=== PATIENT | male | born 1960 | race Caucasian/White ===

== ENCOUNTER 2021-09-02 20:50 | Emergency (ER) | payer OTHER, SELFPAY ==
[2021-09-02] VITALS (9 sets, daily range): BP systolic 160–180; BP diastolic 88–101; PULSE 74–80; RESP 15–22; TEMP 36.5; O2SAT 96–99
--- NOTE | 2021-09-02 21:01 | DI.RAD.S_ITS ---
PROCEDURE: XR CHEST 1V INDICATIONS: chest pain TECHNIQUE: One view of the chest was acquired. COMPARISON: None. FINDINGS: Surgical changes and devices: None. Lungs and pleura: Lungs are clear. No pleural effusions or pneumothorax. Mediastinum: Mediastinal contours appear normal. Heart size is normal. Bones and chest wall: No suspicious bony lesions. Overlying soft tissues appear unremarkable. IMPRESSION: No acute cardiopulmonary process demonstrated radiographically. Dictated by: Jimmy Lew M.D. on 09/02/2021 at 21:17 Approved by: Jimmy Lew M.D. on 09/02/2021 at 21:17
--- NOTE | 2021-09-02 21:15 | ED_ITS ---
HPI - Chest Pain General Chief Complaint: Chest Pain Stated Complaint: DIFFICULTY BREATING/FEELS LIKE COULD BE AFIB Time Seen by Provider: 09/02/21 21:15 Source: patient Mode of arrival: Ambulatory History of Present Illness HPI narrative: 61-year-old gentleman with a history of asthma sleep apnea hypertension with prior necrotizing fasciitis from chronic lymphedema involving the left lower extremity presents with chest dyspnea that started at around 1:00 this afternoon. He was in his usual state of health when he began noticing the tightness. His usual state of health includes occasional dyspnea, fatigue, lower extremity edema and intermittent chest tightness. Today he denies nausea, vomiting, diarrhea, fevers he notes that he has a slightly more exacerbated cough than at his baseline. No change to his chronic lower extremity edema. He is not noticed any palpitations headaches. He denies any history of prior cardiac events or stroke. Related Data Previous Rx's Medication Instructions Recorded albuterol sulfate 90 mcg/actuation 2 inh INHALATION Q6H PRN #1 ea 09/03/21 breath activated powder inhaler prednisone 20 mg tablet 20 mg PO DAILY #5 tab 09/03/21 Allergies Allergy/AdvReac Type Severity Reaction Status Date / Time clindamycin Allergy Verified 09/02/21 21:12 vancomycin Allergy Verified 09/02/21 21:12 Review of Systems Review of Systems Narrative: Remainder of complete review of systems is otherwise unremarkable except for that included in the HPI. Patient History Medical History Asthma History of necrotizing fasciitis Hypertension Morbid obesity Sleep apnea Exam Narrative Exam Narrative: General: Obese, mild dyspnea but able to speak in complete sentences. Able to give a complete and coherent history. HEENT: Moist mucous membranes, normal sclera with reactive pupils, Neck: No JVD, supple Respiratory: Lungs minor wheeze in all lung mancia, no rhonchi. Full and symm etrical air movement Cardiac: Regular rate and rhythm no murmurs no bruits Abdomen: Soft, obese, nontender, no flank pain Skin: Somewhat pale but otherwise Warm and dry, no rashes Neurologic: Grossly neurologically intact with no obvious asymmetries or abnormalities Extremities: No trauma, compression socks in place bilaterally, left side with significant lymphedema and skin graft scars. Psych: Cooperative, appropriate insight and affect Initial Vital Signs Initial Vital Signs: Vital Signs Temperature 97.7 F 09/02/21 21:01 Pulse Rate 77 09/02/21 21:01 Respiratory Rate 22 09/02/21 21:01 Blood Pressure 179/101 H 09/02/21 21:01 Pulse Oximetry 98 09/02/21 21:01 Course Orders Ordered: ED Orders 09/02/21 21:01 XR chest 1V Stat EKG-12 Lead Stat 09/02/21 21:11 COVID19 -Nasal swab/Pre-Proc Stat 09/02/21 21:30 Complete Blood Count AUTO DIFF Stat Comprehensive Metabolic Panel Stat Lipase Stat Magnesium Stat Troponin & CK Cardiac Panel Stat Discontinued Medications Albuterol/Ipratropium (Albuterol/Ipratropium 3 Ml Ampul) 3 ml INH NOW ONE Stop: 09/02/21 22:34 Last Admin: 09/02/21 22:44 Dose: 3 ml Documented by: JONELLE Methylprednisolone (Methylprednisolone 125 Mg/2 Ml Vial) 125 mg IV NOW ONE Stop: 09/02/21 23:49 Last Admin: 09/02/21 23:56 Dose: 125 mg Documented by: Metoprolol Tartrate (Metoprolol Ir 25 Mg Tablet) 50 mg PO NOW ONE Stop: 09/02/21 21:34 Last Admin: 09/02/21 21:43 Dose: 50 mg Documented by: MEREDITH Vital Signs Vital signs: Vital Signs - 8 hr 09/02/21 21:01 09/02/21 21:10 09/02/21 21:30 Temperature 97.7 F Pulse Rate 77 76 77 Respiratory Rate 22 Blood Pressure 179/101 H Pulse Oximetry 98 97 09/02/21 21:31 09/02/21 22:00 09/02/21 22:30 Temperature Pulse Rate 80 77 76 Respiratory Rate 15 16 Blood Pressure 180/97 H 169/89 H 160/88 H Pulse Oximetry 96 96 09/02/21 22:48 Temperature Pulse Rate Respiratory Rate 18 Blood Pressure Pulse Oximetry 99 MDM - Chest Pain Lab Data Result diagrams: 09/02/21 21:30 09/02/21 21:30 Labs: Lab Results 09/02/21 09/02/21 09/02/21 Range/Units 21:11 21:30 21:30 WBC 9.0 (4.5-11.0) X10^3/uL RBC 4.59 (4.5-5.9) X10^6/uL Hgb 13.7 (13.5-17.5) g/dL Hct 40.8 L (41-53) % MCV 88.9 (80-100) fL MCH 30.0 (26-34) PG MCHC 33.7 (30-36) % RDW 13.8 (11.6-14.8) % Plt Count 270 (150-400) X10^3/uL Neut % (Auto) 57.1 (50-75) % Lymph % (Auto) 32.4 (25-40) % [place] % (Auto) 7.2 (3-14) % Eos % (Auto) 2.5 (2-4) % Baso % (Auto) 0.8 (0-2) % Neut # (Auto) 5100 (8124-0681) /uL Lymph # (Auto) 2900 (7815-0753) /uL [place] # (Auto) 700 (0-900) /uL Eos # (Auto) 200 (0-450) /uL Baso # (Auto) 100 (0-100) /uL Sodium 143 (137-145) mmol/L Potassium 3.8 (3.4-5.1) mmol/L Chloride 109 H (98-107) mmol/L Carbon Dioxide 32 (22-32) mmol/L BUN 17 (9-20) mg/dL Creatinine 1.02 (0.66-1.25) mg/dL Estimated GFR > 60.0 (>60) mL/min BUN/Creatinine Ratio 16.7 (6-22) Glucose 108 H (70-100) mg/dL Calcium 9.4 (8.4-10.2) mg/dL Magnesium 2.3 (1.6-2.3) mg/dL Total Bilirubin 0.7 (0.2-1.3) mg/dL AST 75 H (17-59) IU/L ALT 102 H (<50) IU/L Alkaline Phosphatase 92 (38-126) U/L Total Creatine Kinase 172 H (55-170) U/L CK-MB (CK-2) 1.38 (<2.37) ng/mL CK-MB (CK-2) Rel Index 0.8 L (1.5-5.0) % Troponin I < 0.012 (0.01-0.034) ng/mL Total Protein 7.1 (6.3-8.2) g/dL Albumin 4.2 (3.5-5.0) g/dL Globulin 2.9 (1.7-4.1) g/dL Albumin/Globulin Ratio 1.4 (1.0-2.8) Lipase 176 (23-300) U/L SARS-CoV-2 (PCR) Negative (Negative) Imaging Data Chest x-ray: Radiologist's Impression: FINDINGS:? ? Surgical changes and devices:? None.? ? Lungs and pleura:? Lungs are clear.? No pleural effusions or pneumothorax.? ? Mediastinum:? Mediastinal contours appear normal.? Heart size is normal.? ? Bones and chest wall:? No suspicious bony lesions.? Overlying soft tissues appear unremarkable.? ? IMPRESSION:? No acute cardiopulmonary process demonstrated radiographically. ? ? Dictated by: Jimmy Lew M.D. on 09/02/2021 at 21:17 ? ? ECG Data Interpretation: Sinus rhythm with first-degree AV block at a rate of 79 T-wave flattening laterally without acute ischemic changes Discharge Plan Departure Patient Disposition: Home Clinical Impression: Acute asthma exacerbation Instructions: DI for Asthma -- Adult Activity Restrictions/Additional Instructions: Thank you for coming in today It looks like you are having a mild asthma exacerbation. You responded nicely to the DuoNeb. There is no evidence of pneumonia, heart attack or acute coronary syndrome, overwhelming infection and you do not have COVID today. I have given you a prescription for albuterol, please use 2 puffs every 6 hours as needed for tightness or wheezing, prescription was electronically transmitted to [facility] in [place] I also can is suggest 4 days of 20 mg of prednisone to help reduce the lung inflammation associated with this minor asthma exacerbation. If you find that things get worse, please return to the ER Prescriptions: New albuterol sulfate 90 mcg/actuation aerosol powdr breath activated 2 inh inhalation Q6H PRN (Reason: shortness of breath or wheezing) Qty: 1 2RF prednisone 20 mg tablet 20 mg PO DAILY Qty: 5 0RF
[2021-09-02 21:42] LABS: COVID19 -Nasal RAPID Negative (Negative)
[2021-09-02] MEDS: METOPROLOL IR 25 MG TABLET 50 MG PO (21:43)
[2021-09-02 21:45] LABS: Add Manual Diff / Slide Review NO; Basophils Absolute Auto 100 /uL (0-100); Basophils Percent Auto 0.8 % (0-2); Eosinophils Absolute Auto 200 /uL (0-450); Eosinophils Percent Auto 2.5 % (2-4); Hematocrit 40.8 % (41-53); Hemoglobin 13.7 g/dL (13.5-17.5); Lymphocytes Absolute Auto 2900 /uL (1100-4500); Lymphocytes Percent Auto 32.4 % (25-40); Mean Corpuscular HGB Conc 33.7 % (30-36); Mean Corpuscular Volume 88.9 fL (80-100); Monocytes Absolute Auto 700 /uL (0-900); Monocytes Percent Auto 7.2 % (3-14); Neutrophils Absolute Auto 5100 /uL (1500-7000); Neutrophils Percent Auto 57.1 % (50-75); Platelet Count 270 X10^3/uL (150-400); Red Blood Cell Count 4.59 X10^6/uL (4.5-5.9); Red Cell Distribution Width 13.8 % (11.6-14.8)
[2021-09-02 21:54] LABS: Alanine Aminotransferase 102 IU/L (<50); Albumin 4.2 g/dL (3.5-5.0); Albumin Globulin Ratio 1.4 (1.0-2.8); Alkaline Phosphatase 92 U/L (38-126); Aspartate Aminotransferase 75 IU/L (17-59); BUN Creatinine Ratio 16.7 (6-22); Bilirubin Total 0.7 mg/dL (0.2-1.3); Blood Urea Nitrogen 17 mg/dL (9-20); Calcium 9.4 mg/dL (8.4-10.2); Carbon Dioxide 32 mmol/L (22-32); Chloride 109 mmol/L (98-107); Creatine Kinase 172 U/L (55-170); Estimated Glomerular Filt Rate > 60.0 mL/min (>60); Globulin 2.9 g/dL (1.7-4.1); Glucose 108 mg/dL (70-100); HEMOLYSIS 18 (0-50); Lipase 176 U/L (23-300); Magnesium 2.3 mg/dL (1.6-2.3); Potassium 3.8 mmol/L (3.4-5.1); Sodium 143 mmol/L (137-145); Total Protein 7.1 g/dL (6.3-8.2)
[2021-09-02 22:06] LABS: Troponin I < 0.012 ng/mL (0.01-0.034)
[2021-09-02 22:09] LABS: CKMB % Relative Index 0.8 % (1.5-5.0); Creatine Kinase MB 1.38 ng/mL (<2.37)
[2021-09-02] MEDS: ALBUTEROL/IPRATROPIUM 3 ML AMPUL INH (22:44)
[2021-09-02] MEDS: methylPREDNISolone 125 MG/2 ML VIAL IV (23:56)
[2021-09-03 00:09] VITALS: PULSE 70; O2SAT 96
[2021-09-03 00:15] VITALS: BP 184/108; PULSE 69; O2SAT 96
== END 2021-09-03 00:18 | disposition home or self-care (01) ==
PROVIDERS: Emergency Provider Emergency Medicine
DX: J45.901 Unspecified asthma with (acute) exacerbation (principal); R07.9 Chest pain, unspecified; Z20.822 Contact with and (suspected) exposure to COVID-19
CPT/HCPCS: 36415; 71045; 80053; 82550; 82553; 83690; 83735; 84484; 85025; 87635; 93005; 93010; 94640; 99284; C9803; J2930